=== PATIENT | male | born 1980 | race Caucasian/White ===

== ENCOUNTER 2023-07-03 02:30 | Day surgery (SDC) | payer OTHER, SELFPAY ==
[2023-06-24 11:56] VITALS: BMI 25.7
--- NOTE | 2023-06-24 12:01 | PC.NURSE ---
Addendum entered by Brigida Francis RN 06/24/23 12:32: PT INSTRUCTED LAST DOSE OF VITAMINS TO BE 06/29/23. Original Note: Report to the Outpatient Waiting Room, entrance under the green pavilion located off [facility], at time 0745 on date 07/03/23. Planned Procedure Time: 0945. Time changes happen often and if your time is changed the preop area will call you the afternoon before. - You and your visitor will be asked to self-screen and do not enter if you have any COVID symptoms. - A mask is optional within the hospital at this time. Patients may have clear liquids (water, carbonated beverages, clear teas, apple juice) until 3 hours prior to surgery with a maximum of 20 ounces. - No food from midnight until time of surgery Take the following medications with a SIP of water the morning of surgery: NONE DO NOT STOP ANY OF YOUR OTHER PRESCRIPTION MEDICATIONS PRIOR TO SURGERY ?EXCEPT THE FOLLOWING Medications to discontinue per physician: VITAMINS/SUPPLEMENTS Date to take last dose: 07/06/23 Please no make-up, nail sami, hairspray, perfume, deodorant, or body powder the day of surgery. No jewelry (including any body piercings) or valuables the day of surgery, leave them at home. Please take a shower or bath the night before, or the morning of, surgery with an antibacterial soap. Wear comfortable, loose fitting clothing. - Jewelry must be removed prior to entering the operating room. Rings and piercings that are not removed may be cut off. - The hospital will not accept responsibility for valuables. - Please leave all valuables, including medications, at home the day of surgery. If you are going home after surgery, a licensed pile driver engineer must drive you home. - NO public transportation without another adult if you receive anesthesia. - We recommend that an adult stay with you for 24 hours following discharge. - We also recommend that you do not drive, make important decision, drink alcoholic beverages, or take any drugs that were not prescribed by your health care provider for at least 24 hours after your discharge time. Follow any additional instructions given to you from your surgeon. If you or anyone in your household have experienced Covid symptoms in the past week, please notify your surgeon or the nurse liaison at the phone number below for possible testing. Telephone instructions given to PT - MARYLIN and asked if any additional questions and then verbalized understanding. Patient advised to call surgeon office or pre surgery nurse liaison [phone] if any additional questions.
--- NOTE | 2023-07-02 17:06 | PM.IMHP ---
H&P: HPI History of Present Illness Date/Time: 07/02/23 17:06 Chief Complaint: ankyloglossia Narrative: planned procedure Review of Systems Review of Systems: All systems reviewed & are unremarkable except as noted in HPI and below PMFSH Family History Family History (Updated 05/27/23 @ 11:34 by Dariana Anthony [facility]) Mother Hypertension Cerebrovascular accident Father Hypertension Sibling Patient's sister is in good health Patient's brother is in good health Grandparent Hypertension Cerebrovascular accident Social History Social History (Updated 05/27/23 @ 11:33 by Dariana Anthony [facility]) Smoking status: Never smoker Alcohol intake: current Drinks per week: 15 Substance use: current Substance use type: marijuana Do You Feel Safe in your Home?: Yes Lack of Transportation: No Lack of Food: Never True Current Housing: I Have Housing Concerned About Future Housing: No Difficulty Paying Gas/Electric Bills: No Difficulty Paying for Meds: No Currently Unemployed: No Education: Bachelor's Degree Difficulty w/ Childcare or Family Care: No Living arrangements: with family Spiritual care concerns: No Meds Home Medications and Allergies Home Medications Medication Instructions Recorded Confirmed Type cyanocobalamin (vitamin B-12) 1,000 mcg sublingual DAILY 06/24/23 06/24/23 History 1,000 mcg sublingual tablet glucosamine 750 eb-txhbqmokukn-fim 1 tablet PO DAILY 06/24/23 06/24/23 History no1 644 mg-C 30 mg-caleb 1 mg tablet (Osteo Bi-Flex Triple Strength) ibuprofen 200 mg tablet 400 mg PO Q6H PRN Pain 06/24/23 06/24/23 History Allergies Allergy/AdvReac Type Severity Reaction Status Date / Time No Known Allergies Allergy Unverified 06/24/23 11:54 Exam Narrative: ankyloglossia Assessment and Plan Assessment and plan (1) Speech impediment: Code(s): R47.9 - Unspecified speech disturbances Status: Acute Assessment and Plan: plan or lingual frenulectomy LMA okay total operative time probably 15 minutes.? Risks discussed need for time off work time off school pain failure to resolve symptoms need for further procedures if enough is and cut.? Damage to salivary ducts.? Patient voiced understanding and agreed. (2) Ankyloglossia: Code(s): Q38.1 - Ankyloglossia Status: Acute
[2023-07-03] VITALS (8 sets, daily range): BP systolic 96–166; BP diastolic 71–122; PULSE 58–86; RESP 13–20; TEMP 36.2–36.4; O2SAT 94–100
--- NOTE | 2023-07-03 07:20 | WPDHPUPDATE1 ---
History and Physical Update Update Date/Time: 07/03/23 07:20 History and Physical has been reviewed, including an updated exam of the patient. There are NO changes in the patient's condition. Risks, benefits, and alternatives have been discussed and questions answered. Patient agrees to proceed with procedure.
[2023-07-03] MEDS: LACTATED RINGERS 1,000 ML 30 ML IV CONT (08:47)
--- NOTE | 2023-07-03 09:34 | WPDANESEPPF ---
Anes - Initial Pre Proc Eval Procedure: Operation Date: 07/03/23 09:45 Proposed Procedures p Lingual Frenulectomy - Hal Marina MD Date/Time: 07/03/23 09:34 Surgeon: Hal Marina MD Pre Op Diagnosis: Ankyloglossia Patient Data Age: 42 Gender: M Height: 1.88 m Weight: 91 kg Last Vital Signs Temp 97.6 F 07/03/23 08:41 Pulse 82 07/03/23 08:41 Resp 14 07/03/23 08:41 BP 156/103 H 07/03/23 08:41 Pulse Ox 100 07/03/23 08:41 O2 Del Method Room Air 07/03/23 08:41 Allergies Allergy/AdvReac Type Severity Reaction Status Date / Time No Known Allergies Allergy Verified 07/03/23 08:47 Home Medications Medication Instructions Recorded Confirmed Type cyanocobalamin (vitamin B-12) 1,000 mcg sublingual DAILY 06/24/23 06/24/23 History 1,000 mcg sublingual tablet glucosamine 750 rl-zcaimrnkyph-sod 1 tablet PO DAILY 06/24/23 06/24/23 History no1 644 mg-C 30 mg-caleb 1 mg tablet (Osteo Bi-Flex Triple Strength) ibuprofen 200 mg tablet 400 mg PO Q6H PRN Pain 06/24/23 06/24/23 History Patient hx anesthesia problems: none Family hx anesthesia problems: none Results Review: All pre-operative results and documents have been reviewed as part of the pre-operative evaluation. [facility] Family History Family History (Updated 05/27/23 @ 11:34 by Darinaa Anthony CMA) Mother Hypertension Cerebrovascular accident Father Hypertension Sibling Patient's sister is in good health Patient's brother is in good health Grandparent Hypertension Cerebrovascular accident Social History Social History (Updated 05/27/23 @ 11:33 by Dariana Anthony CMA) Smoking status: Never smoker Alcohol intake: current Drinks per week: 15 Substance use: current Substance use type: marijuana Do You Feel Safe in your Home?: Yes Lack of Transportation: No Lack of Food: Never True Current Housing: I Have Housing Concerned About Future Housing: No Difficulty Paying Gas/Electric Bills: No Difficulty Paying for Meds: No Currently Unemployed: No Education: Bachelor's Degree Difficulty w/ Childcare or Family Care: No Living arrangements: with family Spiritual care concerns: No Anes - Eval Final PreProcedure Day of Procedure 07/03/23 09:34 Patient weight: normal Heart: regular rate and rhythm Lungs: clear to auscultation Airway: Mallampati scale class II Neurological: alert and oriented Last oral intake: >/= 8 hours ASA classification: II Emergent: no Anesthetic plan: proceed Anesthesia type and monitoring: general LMA and standard monitoring Results Review: All pre-operative results and documents have been reviewed as part of the pre-operative evaluation. Pt w elevated BP in preop area. Asymptomatic. He reports that he always has elevated BP when he gets checked, he really does not like the squeezing of the cuff, even in the PCP office, and that he just has to calm down while there and then PCP obtains a reading of 120 systolic. Counseled pt on the importance of checking his BP in the normal setting, recording values, and reporting back to his PCP in the future. He understands concerns. Informed Consent: The patient's anesthetic plan and its attendant risks and benefits were discussed with the patient/family/POA. Questions were solicited and answers provided to the satisfaction of the patient/family/POA.
--- NOTE | 2023-07-03 11:11 | W.PM.PROC2 ---
Procedure Note - Detailed Date of Procedure 07/03/23 Pre-op Diagnosis Ankyloglossia Post-op Diagnosis Same Procedure Performed Lingual frenulectomy Surgeon Hal Marina MD Anesthesia General Indications See above Findings very deep frenulum bleeding from a small bridging vein across the frenulum controlled with bipolar electrocautery defect closed with 3 interrupted chromic sutures Description of Procedure patient identified consent verified preop. Patient brought to the operating. Time-out performed. General anesthesia induced, LMA secured. Patient prepped draped position procedure confirmed 2nd time-out performed. Side-biting mouth gag placed unfortunately the lip was pinched in the [place] side-biting mouth gag care [place] side biting mouth gag I will inform the patient afterwards no perforation of the lip no bleeding from the lip. Frenulum grass tongue elevated with 2 fingers frenulum is really deep this was cut with by Bovie electrocautery needle tip at a setting of 10. The very last cut small bleeding ensued from a very small bridging vein. Bipolar electrocautery utilized to cut utilized to cauterize this. After the bleeding was stopped total loss of about 5 cc. Three interrupted chromic sutures were placed after the wound was irrigated. Very good release very good tongue movement. Patient tolerated procedure very well no complications. I performed all dictated portions of procedure side-biting mouth gag removed again initially lip was clamped and a side-biting mouth gag no perforation of the lip no bleeding. I performed all dictated portions of procedure blood loss 5 cc no complications other than previously mentioned care the patient given back to Anesthesiology. Estimated Blood Loss 5 Drains No Packing No Pathology None sent Complications No immediate complications Condition Stable Disposition PACU [facility] Billing Surgery - Charge Forward: Surgery Billing
--- NOTE | 2023-07-03 11:51 | SUR.PHASEII ---
Notified Dr. Norwood of patient's elevated BP. Patient is asymptomatic. No orders received to treat BP at this time. Patient okay to be discharged.
== END 2023-07-03 12:12 | disposition home or self-care (01) ==
PROVIDERS: PCP Internal Medicine; Visit Provider Otolaryngology
PROC: (CPT 41010; principal; 2023-07-03 09:45)
DX: Q38.1 Ankyloglossia (principal); F12.90 Cannabis use, unspecified, uncomplicated
CPT/HCPCS: 41010; J1100; J2250; J2405; J2704; J3010; J7120